=== PATIENT | male | born 1950 | race Asian ===

== ENCOUNTER 2019-08-18 17:04 | Inpatient (IN) | payer MEDICARE, OTHER ==
[~2019-08-18] VITALS: Ht 175.3 cm; Wt 72.7 kg
[2019-08-18] MEDS ORDERED: METF-960 PO (17:34)
[2019-08-18] MEDS ORDERED: CARV25 PO (17:34)
[2019-08-18 18:23] LABS: BASOPHILS % (AUTO) 0.5 % (0.0-2.0); EOSINOPHILS % (AUTO) 6.2 % (1.0-6.0); HEMATOCRIT 27.9 % (41-53); HEMOGLOBIN 8.6 g/dL (13.5-17.5); LYMPHOCYTES # (AUTO) 1.4 K/uL (1.0-4.8); MEAN CORPUSCULAR HEMOGLOBIN 25.1 pg (26.0-34.0); MEAN CORPUSCULAR HGB CONC 30.6 G/dL (31.0-37.0); MEAN CORPUSCULAR VOLUME 82 fL (80-100); MONOCYTES # (AUTO) 1.1 K/uL (0.1-1.0); MONOCYTES % (AUTO) 9.3 % (2.0-9.0); NEUTROPHILS # (AUTO) 8.4 K/uL (1.8-7.7); PLATELET COUNT (AUTO) 245 K/uL (150-450); RED BLOOD CELL COUNT(AUTO) 3.41 MIL/uL (4.50-5.90); RED CELL DISTRIBUTION WIDTH 16.4 % (11.5-14.5)
[2019-08-18] MEDS ORDERED: FINA5TAB41 PO (18:58)
[2019-08-18] MEDS ORDERED: LOSA50TA64 PO (18:58)
[2019-08-18] MEDS ORDERED: LINA5TAB PO (18:58)
[2019-08-18] MEDS ORDERED: HYPR15DR23 OU (18:58)
[2019-08-18] MEDS ORDERED: BISA10SU11 PR (18:58)
[2019-08-18] MEDS ORDERED: AMLO10TA7 PO (18:58)
[2019-08-18] MEDS ORDERED: CARB15DR94 OU (18:58)
[2019-08-18] MEDS ORDERED: MENT3.5O TP (18:58)
[2019-08-18] MEDS ORDERED: ATOR20TA86 PO (18:58)
[2019-08-18] MEDS ORDERED: FERSL PO (18:58)
[2019-08-18] MEDS ORDERED: AMMO225L14 TP (18:58)
[2019-08-18 18:59] LABS: B-TYPE NATRIURETIC PEPTIDE 56 pg/mL (0-100)
[2019-08-18] MEDS ORDERED: SODIUM CHLORIDE 0.9% 1,000 ML IV ONE (19:15)
[2019-08-18] MEDS ORDERED: ALBUTEROL SULFATE 2.5 MG/0.5 ML NEB SOLUTION NEB ONE (19:15)
[2019-08-18] MEDS ORDERED: IPRATROPIUM BROMIDE 0.5 MG/2.5 ML NEB SOLUTION NEB ONE ×2 (19:15→20:30)
[2019-08-18 19:16] LABS: ALANINE AMINOTRANSFERASE 10 U/L (12-78); ALBUMIN 2.8 g/dL (3.4-5.0); ALKALINE PHOSPHATASE 95 U/L (46-116); ANION GAP 4 mmol/L (8-16); ASPARTATE AMINOTRANSFERASE 22 U/L (15-37); BILIRUBIN,TOTAL 0.4 mg/dL (0.1-1.0); CARBON DIOXIDE 31 mmol/L (22-29); CHLORIDE 102 mmol/L (98-107); CREATININE 1.26 mg/dL (0.60-1.30); GLOMERULAR FILTR. RATE CALC 57 mL/min (>60); GLUCOSE,RANDOM 117 mg/dL (70-110); LIPASE 343 U/L (73-393); POTASSIUM 5.6 mmol/L (3.5-5.1); SODIUM SERUM 137 mmol/L (136-145); TOTAL PROTEIN, SERUM 6.8 g/dL (6.4-8.2); UREA NITROGEN, BLOOD 32 mg/dL (7-18)
[2019-08-18 19:26] LABS: LACTIC ACID 2.2 mmol/L (0.4-2.0)
[2019-08-18 19:37] LABS: CALCIUM, TOTAL 8.3 mg/dL (8.8-10.5)
[2019-08-18 19:38] LABS: GLUCOSE,POINT OF CARE 114 MG/DL (70-110)
[2019-08-18] MEDS ORDERED: 0.9% SODIUM CHLORIDE 10 ML SYRINGE IVP PRN ×2 (20:00→22:15)
[2019-08-18] MEDS ORDERED: ACETAMINOPHEN 325 MG TABLET PO PRN (20:00)
[2019-08-18] MEDS ORDERED: ONDANSETRON HCL 4 MG/2 ML VIAL IVP PRN ×2 (20:00→22:15)
[2019-08-18] MEDS ORDERED: AZITHROMYCIN 500 MG/NS 250 ML IV ONE (20:15)
[2019-08-18] MEDS ORDERED: CefTRIAXone 1 GM/DEXTROSE 50 ML IV ONE (20:15)
[2019-08-18] MEDS ORDERED: ALBUTEROL SULFATE 5 MG/ML 20 ML NEB SOLN [BULK] NEB ONE (20:30)
[2019-08-18] MEDS ORDERED: 0.9% SODIUM CHLORIDE 5 ML NEB SOLUTION NEB ONE ×2 (20:32)
[2019-08-18] MEDS: OXYGEN THERAPY IH SCH (22:08)
[2019-08-18] MEDS ORDERED: IPRATROPIUM BROMIDE 0.5 MG/2.5 ML NEB SOLUTION NEB PRN (22:15)
[2019-08-18] MEDS ORDERED: ALBUTEROL SULFATE 2.5 MG/0.5 ML NEB SOLUTION NEB PRN (22:15)
[2019-08-18 22:50] LABS: APPEARANCE,URINE CLEAR (CLEAR); BILIRUBIN,URINE NEGATIVE (NEGATIVE); GLUCOSE, URINE (UA) NEGATIVE (NEGATIVE); KETONES,URINE NEGATIVE (NEGATIVE); LEUKOCYTE ESTERASE ,URINE TRACE (NEGATIVE); NITRATE,URINE NEGATIVE (NEGATIVE); OCCULT BLOOD,URINE NEGATIVE (NEGATIVE); PH,URINE 7.5 (5.0-8.0); PROTEIN,URINE POS 1+ (NEGATIVE); UROBILINOGEN,URINE 0.2 mg/dL (<=1.0)
[2019-08-18 22:51] LABS: INFLUENZA TYPE A NEGATIVE FOR TYPE A (NEGATIVE); INFLUENZA TYPE B NEGATIVE FOR TYPE B (NEGATIVE)
[2019-08-18] MEDS: MetroNIDAZOLE 500 MG/NACL 100 ML IV SCH (23:05)
[2019-08-18 23:10] LABS: BACTERIA,URINE None Seen /HPF (None Seen); RBC,URINE None Seen /HPF (0-2); WBC,URINE 0-2 /HPF (0-5)
[2019-08-18 23:11] LABS: SQUAMOUS EPITHELIAL CELL,UR None Seen /LPF (None Seen)
[2019-08-19] VITALS (8 sets, daily range): BP systolic 114–142; BP diastolic 55–75
[2019-08-19] MEDS ORDERED: ALBUTEROL SULFATE 2.5 MG/0.5 ML NEB SOLUTION NEB SCH (02:00)
[2019-08-19] MEDS: IPRATROPIUM BROMIDE 0.5 MG/2.5 ML NEB SOLUTION NEB SCH ×4 (02:00→20:32)
[2019-08-19] MEDS ORDERED: IPRATROPIUM BROMIDE 0.5 MG/2.5 ML NEB SOLUTION NEB SCH (02:00)
[2019-08-19] MEDS: ALBUTEROL SULFATE 2.5 MG/0.5 ML NEB SOLUTION NEB SCH ×4 (02:00→20:32)
[2019-08-19] MEDS ORDERED: SODIUM CHLORIDE 0.9% 500 ML IV ONE (03:40)
[2019-08-19] MEDS: MetroNIDAZOLE 500 MG/NACL 100 ML IV SCH ×4 (03:50→23:22)
[2019-08-19] MEDS: OXYGEN THERAPY IH SCH (07:12)
[2019-08-19 07:33] LABS: GLUCOMETER DEV NAME(LOC) 6N.1; GLUCOSE,POINT OF CARE 137 MG/DL (70-110)
[2019-08-19] MEDS ORDERED: MAGNESIUM SULFATE 2 GM/WATER 50 ML IV PRN (08:30)
[2019-08-19] MEDS ORDERED: MAGNESIUM SULFATE 4 GM/WATER 100 ML IV PRN (08:30)
[2019-08-19] MEDS ORDERED: MAGNESIUM OXIDE 400 MG TABLET PO PRN (08:30)
[2019-08-19] MEDS ORDERED: POTASSIUM CHLORIDE 20 MEQ ER TABLET PO PRN (08:30)
[2019-08-19] MEDS ORDERED: POTASSIUM CHL 10 MEQ/WATER 50 ML IV PRN (08:30)
[2019-08-19] MEDS: MetFORMIN HCL 500 MG TABLET PO SCH ×2 (08:57→20:39)
[2019-08-19] MEDS: FERROUS SULFATE 300 MG/5 ML LIQUID UDCUP PO SCH (08:57)
[2019-08-19] MEDS: HYPROMELLOSE 0.5% 15 ML OPHTHALMIC SOLUTION OU SCH ×4 (08:57→20:44)
[2019-08-19] MEDS: AmLODIPine BESYLATE 10 MG TABLET PO SCH (08:58)
[2019-08-19] MEDS: LOSARTAN POTASSIUM 50 MG TABLET PO SCH (08:58)
[2019-08-19] MEDS: ATORVASTATIN CALCIUM 20 MG TABLET PO SCH (08:58)
[2019-08-19] MEDS: CARVEDILOL 25 MG TABLET PO SCH ×2 (08:58→23:12)
[2019-08-19] MEDS: LinaGLIPtin 5 MG TABLET PO SCH (08:58)
[2019-08-19] MEDS: FINASTERIDE 5 MG TABLET PO SCH (08:58)
[2019-08-19] MEDS ORDERED: [UNRECOGNIZED DRUG - OTHER] OU SCH (09:00)
[2019-08-19] MEDS ORDERED: MENTHOL TP SCH (09:00)
[2019-08-19] MEDS ORDERED: ZINC OXIDE TP SCH (09:00)
[2019-08-19] MEDS: BISACODYL 10 MG RECTAL RECTAL SUPPOSITORY PR PRN (15:31)
[2019-08-19] MEDS ORDERED: DEXTROSE 50%-WATER 25 GM/50 ML SYRINGE IVP PRN (18:15)
[2019-08-19] MEDS: INSULIN LISPRO 100 UNITS/ML SQ PRN ×2 (18:50→23:13)
[2019-08-19] MEDS: CefTRIAXone 1 GM/DEXTROSE 50 ML IV SCH (20:39)
[2019-08-19] MEDS: DOXYCYCLINE HYCLATE 100 MG CAPSULE GT SCH (20:44)
[2019-08-20 00:53] LABS: GLUCOMETER DEV NAME(LOC) 6N.1; GLUCOSE,POINT OF CARE 138 MG/DL (70-110)
[2019-08-20 00:53] LABS: GLUCOMETER DEV NAME(LOC) 6N.1; GLUCOSE,POINT OF CARE 154 MG/DL (70-110)
[2019-08-20] MEDS: ALBUTEROL SULFATE 2.5 MG/0.5 ML NEB SOLUTION NEB SCH ×4 (02:08→20:06)
[2019-08-20] MEDS: IPRATROPIUM BROMIDE 0.5 MG/2.5 ML NEB SOLUTION NEB SCH ×4 (02:08→20:06)
[2019-08-20 04:49] VITALS: BP 142/69
[2019-08-20] MEDS: MetroNIDAZOLE 500 MG/NACL 100 ML IV SCH ×3 (05:40→17:13)
[2019-08-20] MEDS: INSULIN LISPRO 100 UNITS/ML SQ PRN ×3 (05:41→17:12)
[2019-08-20 07:17] LABS: EOSINOPHILS % (AUTO) 2.9 % (1.0-6.0); HEMATOCRIT 26.1 % (41-53); HEMOGLOBIN 8.3 g/dL (13.5-17.5); LYMPHOCYTES # (AUTO) 1.3 K/uL (1.0-4.8); LYMPHOCYTES % (AUTO) 12.5 % (22.0-44.0); MEAN CORPUSCULAR HEMOGLOBIN 26.4 pg (26.0-34.0); MEAN CORPUSCULAR HGB CONC 31.9 G/dL (31.0-37.0); MEAN CORPUSCULAR VOLUME 83 fL (80-100); MONOCYTES # (AUTO) 0.7 K/uL (0.1-1.0); MONOCYTES % (AUTO) 7.1 % (2.0-9.0); NEUTROPHILS # (AUTO) 7.8 K/uL (1.8-7.7); NEUTROPHILS % (AUTO) 76.5 % (40.0-70.0); PLATELET COUNT (AUTO) 245 K/uL (150-450); RED BLOOD CELL COUNT(AUTO) 3.15 MIL/uL (4.50-5.90); RED CELL DISTRIBUTION WIDTH 16.6 % (11.5-14.5)
[2019-08-20 07:35] LABS: ANION GAP 7 mmol/L (8-16); CARBON DIOXIDE 28 mmol/L (22-29); CHLORIDE 109 mmol/L (98-107); GLOMERULAR FILTR. RATE CALC 55 mL/min (>60); GLUCOSE,RANDOM 149 mg/dL (70-110); POTASSIUM 4.5 mmol/L (3.5-5.1); SODIUM SERUM 144 mmol/L (136-145); UREA NITROGEN, BLOOD 21 mg/dL (7-18)
[2019-08-20 07:50] VITALS: BP 129/89
[2019-08-20] MEDS: LOSARTAN POTASSIUM 50 MG TABLET PO SCH (08:17)
[2019-08-20] MEDS: CARVEDILOL 25 MG TABLET PO SCH ×2 (08:17→20:49)
[2019-08-20] MEDS: FERROUS SULFATE 300 MG/5 ML LIQUID UDCUP PO SCH (08:17)
[2019-08-20] MEDS: MetFORMIN HCL 500 MG TABLET PO SCH ×2 (08:17→17:13)
[2019-08-20] MEDS: LinaGLIPtin 5 MG TABLET PO SCH (08:17)
[2019-08-20] MEDS: FINASTERIDE 5 MG TABLET PO SCH (08:18)
[2019-08-20] MEDS: ATORVASTATIN CALCIUM 20 MG TABLET PO SCH (08:18)
[2019-08-20] MEDS: DOXYCYCLINE HYCLATE 100 MG CAPSULE GT SCH ×2 (08:18→20:49)
[2019-08-20] MEDS: AmLODIPine BESYLATE 10 MG TABLET PO SCH (08:18)
[2019-08-20] MEDS: HYPROMELLOSE 0.5% 15 ML OPHTHALMIC SOLUTION OU SCH ×4 (08:35→20:52)
[2019-08-20 11:37] VITALS: BP 123/61
[2019-08-20 16:11] VITALS: BP 128/59
[2019-08-20 17:15] LABS: GLUCOMETER DEV NAME(LOC) 4E.2; GLUCOSE,POINT OF CARE 147 MG/DL (70-110)
[2019-08-20 17:15] LABS: GLUCOMETER DEV NAME(LOC) 4E.2; GLUCOSE,POINT OF CARE 159 MG/DL (70-110)
[2019-08-20 17:15] LABS: GLUCOMETER DEV NAME(LOC) 4E.2; GLUCOSE,POINT OF CARE 141 MG/DL (70-110)
[2019-08-20 20:04] LABS: GLUCOMETER DEV NAME(LOC) 6N.2; GLUCOSE,POINT OF CARE 153 MG/DL (70-110)
[2019-08-20 20:16] VITALS: BP 131/75
[2019-08-20] MEDS: CefTRIAXone 1 GM/DEXTROSE 50 ML IV SCH (20:51)
[2019-08-20 23:40] VITALS: BP 124/58
[2019-08-21] MEDS: MetroNIDAZOLE 500 MG/NACL 100 ML IV SCH ×3 (00:26→12:39)
[2019-08-21] MEDS: IPRATROPIUM BROMIDE 0.5 MG/2.5 ML NEB SOLUTION NEB SCH ×4 (02:04→20:20)
[2019-08-21] MEDS: ALBUTEROL SULFATE 2.5 MG/0.5 ML NEB SOLUTION NEB SCH ×4 (02:04→20:20)
[2019-08-21 04:00] VITALS: BP 126/64
[2019-08-21] MEDS ORDERED: SODIUM CHLORIDE 0.9% 500 ML IV ONE (05:05)
[2019-08-21 05:54] LABS: GLUCOMETER DEV NAME(LOC) 6N.2; GLUCOSE,POINT OF CARE 138 MG/DL (70-110)
[2019-08-21 05:54] LABS: GLUCOMETER DEV NAME(LOC) 6N.2; GLUCOSE,POINT OF CARE 133 MG/DL (70-110)
[2019-08-21 07:57] VITALS: BP 128/66
[2019-08-21] MEDS: FERROUS SULFATE 300 MG/5 ML LIQUID UDCUP PO SCH (08:14)
[2019-08-21] MEDS: CARVEDILOL 25 MG TABLET PO SCH ×2 (08:15→21:35)
[2019-08-21] MEDS: LOSARTAN POTASSIUM 50 MG TABLET PO SCH (08:15)
[2019-08-21] MEDS: DOXYCYCLINE HYCLATE 100 MG CAPSULE GT SCH ×2 (08:15→21:35)
[2019-08-21] MEDS: AmLODIPine BESYLATE 10 MG TABLET PO SCH (08:15)
[2019-08-21] MEDS: FINASTERIDE 5 MG TABLET PO SCH (08:15)
[2019-08-21] MEDS: ATORVASTATIN CALCIUM 20 MG TABLET PO SCH (08:15)
[2019-08-21] MEDS: MetFORMIN HCL 500 MG TABLET PO SCH ×2 (08:15→17:37)
[2019-08-21] MEDS: LinaGLIPtin 5 MG TABLET PO SCH (08:15)
[2019-08-21] MEDS: HYPROMELLOSE 0.5% 15 ML OPHTHALMIC SOLUTION OU SCH ×4 (08:16→21:36)
[2019-08-21 10:59] VITALS: BP 136/62
[2019-08-21] MEDS: INSULIN LISPRO 100 UNITS/ML SQ PRN (12:40)
[2019-08-21] MEDS ORDERED: SCOPOLAMINE HYDROBROMIDE 1.5 MG PATCH TD SCH (14:00)
[2019-08-21 16:08] VITALS: BP 141/70
[2019-08-21 19:50] VITALS: BP 141/76
[2019-08-21] MEDS: CefTRIAXone 1 GM/DEXTROSE 50 ML IV SCH (21:35)
[2019-08-21] MEDS: MetroNIDAZOLE 500 MG TABLET JT SCH (23:27)
[2019-08-21 23:45] VITALS: BP 134/70
[2019-08-22] MEDS: IPRATROPIUM BROMIDE 0.5 MG/2.5 ML NEB SOLUTION NEB SCH ×4 (02:23→20:32)
[2019-08-22] MEDS: ALBUTEROL SULFATE 2.5 MG/0.5 ML NEB SOLUTION NEB SCH ×4 (02:23→20:32)
[2019-08-22 05:04] VITALS: BP 143/78
[2019-08-22] MEDS: INSULIN LISPRO 100 UNITS/ML SQ PRN ×3 (06:08→17:56)
[2019-08-22] MEDS: BISACODYL 10 MG RECTAL RECTAL SUPPOSITORY PR PRN (06:09)
[2019-08-22 06:37] LABS: GLUCOMETER DEV NAME(LOC) 6N.2; GLUCOSE,POINT OF CARE 146 MG/DL (70-110)
[2019-08-22 06:37] LABS: GLUCOMETER DEV NAME(LOC) 6N.2; GLUCOSE,POINT OF CARE 181 MG/DL (70-110)
[2019-08-22 06:38] LABS: GLUCOMETER DEV NAME(LOC) 6N.2; GLUCOSE,POINT OF CARE 136 MG/DL (70-110)
[2019-08-22 06:38] LABS: GLUCOMETER DEV NAME(LOC) 6N.2; GLUCOSE,POINT OF CARE 168 MG/DL (70-110)
[2019-08-22 07:54] VITALS: BP 140/77
[2019-08-22] MEDS: CARVEDILOL 25 MG TABLET PO SCH ×2 (10:12→20:25)
[2019-08-22] MEDS: DOXYCYCLINE HYCLATE 100 MG CAPSULE GT SCH ×2 (10:12→20:25)
[2019-08-22] MEDS: FINASTERIDE 5 MG TABLET PO SCH (10:13)
[2019-08-22] MEDS: AmLODIPine BESYLATE 10 MG TABLET PO SCH (10:13)
[2019-08-22] MEDS: ATORVASTATIN CALCIUM 20 MG TABLET PO SCH (10:13)
[2019-08-22] MEDS: LOSARTAN POTASSIUM 50 MG TABLET PO SCH (10:13)
[2019-08-22] MEDS: LinaGLIPtin 5 MG TABLET PO SCH (10:13)
[2019-08-22] MEDS: FERROUS SULFATE 300 MG/5 ML LIQUID UDCUP PO SCH (10:13)
[2019-08-22] MEDS: MetFORMIN HCL 500 MG TABLET PO SCH ×2 (10:13→17:54)
[2019-08-22] MEDS: MetroNIDAZOLE 500 MG TABLET JT SCH ×2 (10:13→17:55)
[2019-08-22] MEDS: HYPROMELLOSE 0.5% 15 ML OPHTHALMIC SOLUTION OU SCH ×4 (10:14→20:25)
[2019-08-22 11:32] VITALS: BP 142/72
[2019-08-22 12:06] LABS: GLUCOMETER DEV NAME(LOC) 6N.2; GLUCOSE,POINT OF CARE 177 MG/DL (70-110)
[2019-08-22 15:30] VITALS: BP 136/79
[2019-08-22 18:24] LABS: GLUCOMETER DEV NAME(LOC) 6N.2; GLUCOSE,POINT OF CARE 154 MG/DL (70-110)
[2019-08-22 19:32] VITALS: BP 148/76
[2019-08-22] MEDS: CefTRIAXone 1 GM/DEXTROSE 50 ML IV SCH (20:25)
[2019-08-23] MEDS: MetroNIDAZOLE 500 MG TABLET JT SCH ×3 (00:33→16:28)
[2019-08-23 00:36] VITALS: BP 149/83
[2019-08-23] MEDS: ALBUTEROL SULFATE 2.5 MG/0.5 ML NEB SOLUTION NEB SCH ×3 (02:11→15:59)
[2019-08-23] MEDS: IPRATROPIUM BROMIDE 0.5 MG/2.5 ML NEB SOLUTION NEB SCH ×3 (02:11→15:59)
[2019-08-23 05:08] VITALS: BP 149/75
[2019-08-23] MEDS: INSULIN LISPRO 100 UNITS/ML SQ PRN ×2 (06:34→11:40)
[2019-08-23 07:35] VITALS: BP 140/76
[2019-08-23 07:50] LABS: GLUCOMETER DEV NAME(LOC) 4E.2; GLUCOSE,POINT OF CARE 173 MG/DL (70-110)
[2019-08-23] MEDS: DOXYCYCLINE HYCLATE 100 MG CAPSULE GT SCH (07:52)
[2019-08-23] MEDS: LinaGLIPtin 5 MG TABLET PO SCH (07:52)
[2019-08-23] MEDS: LOSARTAN POTASSIUM 50 MG TABLET PO SCH (07:52)
[2019-08-23] MEDS: FINASTERIDE 5 MG TABLET PO SCH (07:52)
[2019-08-23] MEDS: AmLODIPine BESYLATE 10 MG TABLET PO SCH (07:52)
[2019-08-23] MEDS: MetFORMIN HCL 500 MG TABLET PO SCH ×2 (07:52→16:28)
[2019-08-23] MEDS: CARVEDILOL 25 MG TABLET PO SCH (07:52)
[2019-08-23] MEDS: HYPROMELLOSE 0.5% 15 ML OPHTHALMIC SOLUTION OU SCH ×3 (07:52→16:28)
[2019-08-23] MEDS: ATORVASTATIN CALCIUM 20 MG TABLET PO SCH (07:52)
[2019-08-23] MEDS: FERROUS SULFATE 300 MG/5 ML LIQUID UDCUP PO SCH (07:52)
[2019-08-23 11:10] VITALS: BP 132/64
[2019-08-23 11:46] LABS: GLUCOMETER DEV NAME(LOC) 6N.2; GLUCOSE,POINT OF CARE 126 MG/DL (70-110)
[2019-08-23 11:49] LABS: GLUCOMETER DEV NAME(LOC) 4E.2; GLUCOSE,POINT OF CARE 154 MG/DL (70-110)
[2019-08-23 15:10] VITALS: BP 145/80
[2019-08-24 13:07] LABS: LEGIONELLA PNEUMO AG URINE Negative (Negative); ORGANISM ID Not indicated.; S PNEUMO SOURCE Urine; STREP PNEUMONIAE AG URINE Negative (Negative); STREP.PNEUMO BODY FLUID CULT. Not Indicated
== END 2019-08-23 17:18 | DRG 177 ==
LOC: EMS 17:07 → 6N 08-19 00:40 → 4E 08-19 18:14
PROVIDERS: ADMIT Internal Medicine; ATTEND Internal Medicine
DX: J69.0 Pneumonitis due to inhalation of food and vomit (principal); G82.50 Quadriplegia, unspecified; E43 Unspecified severe protein-calorie malnutrition; I42.9 Cardiomyopathy, unspecified; N39.0 Urinary tract infection, site not specified; E87.5 Hyperkalemia; R09.02 Hypoxemia; E11.9 Type 2 diabetes mellitus without complications; R13.10 Dysphagia, unspecified; Z86.73 Personal history of transient ischemic attack (TIA), and cerebral infarction without residual deficits; Z88.8 Allergy status to other drugs, medicaments and biological substances; Z68.23 Body mass index [BMI] 23.0-23.9, adult; Z93.1 Gastrostomy status; Z95.0 Presence of cardiac pacemaker
CPT/HCPCS: 51702; 71250; 83605; 83735; 84145; 87040; 87449; 87804; 87899; 93005; 94640; 94644; G0378; J0456; J0696; J3490; J7030; J7040